=== PATIENT | female | born 1980 | race Caucasian/White ===

== ENCOUNTER 2016-07-27 03:29 | Emergency (ER) | payer BC ==
[~2016-07-27] VITALS: Ht 170.2 cm; Wt 77.1 kg
[2016-07-27 03:40] VITALS: BP 120/70
[2016-07-27] MEDS ORDERED: PROVENTIL HFA6.7 G1 IH (03:41)
--- NOTE | 2016-07-27 03:59 | Emergency Room Report ---
History of Present Illness General Chief Complaint: Wound Recheck/Suture Removal Source: Patient Present Illness HPI Patient presents with bleeding from a lesion on her thumb. She was diagnosed with a pyogenic granuloma there. She was doing something to help it and had some bleeding. 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 No bleeding problems prior. Tetanus is UTD. R handed. The patient is 32 weeks . The baby is moving. She denies any vaginal bleeding. Anxious. No fevers, URI, chest pain, dizziness. Allergies: Coded Allergies: No Known Allergies (Unverified , 07/27/16) Patient History Past Medical History: see triage record Social History Narrative fashion industry Last Menstrual Period: november 2015 Reviewed Nursing Documentation: PMH: Agreed, PSxH: Agreed Nursing Documentation-PMH Hx Asthma: Yes Review of Systems All Other Systems: negative except mentioned in HPI Physical Exam Vital Signs Date Time Temp Pulse Resp B/P Pulse Ox O2 Delivery O2 Flow Rate FiO2 07/27/16 03:30 97.9 91 16 95 Room Air Sp02 EP Interpretation: reviewed, normal, other - I doubt this result General Appearance: well appearing, no apparent distress, GCS 15 Head: normocephalic, atraumatic Eyes: bilateral eye PERRL, bilateral eye normal inspection ENT: hearing grossly normal, normal voice Neck: full range of motion, supple Respiratory: no respiratory distress, speaking full sentences Gastrointestinal: normal bowel sounds, non tender, soft, no guarding, other - gravid abd Musculoskeletal: digits/nails normal - except for lesion on thumb, gait/ station normal, normal range of motion Neurologic: alert, normal gait, grossly normal Psychiatric: anxious Skin: other - lesion R thumb, bleeding if not elevated and pressure applied Procedures Laceration/Wound Repair Progress betadiene then 1% lido. Cautery ineffective to stop bleeding completely. Suture 6-0 ethilon placed. Bleeding controlled. Dressed with antibiotic ointment. Medical Decision Making Diagnostic Impression: Primary Impression: Bleeding lesion R thumb Additional Impression: 32 weeks gestation of ER Course Patient with uncontrolled bleeding from thumb lesion and 32 weeks . As she is , need to exclude coagulopathy. Also lesion needs hemostasis. Bleeding controlled with cautery and suture. FHT 140 by auscultation. Labs unremarkable. Patient stable for outpatient observation and treatment. Message left regarding labs. Laboratory Tests Test 07/27/16 05:20 White Blood Count 12.5 K/UL (4.8-10.8) H Red Blood Count 3.94 M/UL (4.20-5.40) L Hemoglobin 11.0 G/DL (12.0-16.0) L Hematocrit 32.9 % (37.0-47.0) L Mean Corpuscular Volume 84 FL (80-99) Mean Corpuscular Hemoglobin 27.9 PG (27.0-31.0) Mean Corpuscular Hemoglobin Concent 33.4 G/DL (32.0-36.0) Red Cell Distribution Width 12.0 % (11.6-14.8) Platelet Count 255 K/UL (150-450) Mean Platelet Volume 6.4 FL (6.5-10.1) L Neutrophils (%) (Auto) 67.9 % (45.0-75.0) Lymphocytes (%) (Auto) 26.3 % (20.0-45.0) Monocytes (%) (Auto) 4.6 % (1.0-10.0) Eosinophils (%) (Auto) 0.7 % (0.0-3.0) Basophils (%) (Auto) 0.6 % (0.0-2.0) Prothrombin Time 9.4 SEC (9.30-11.50) Prothrombin Time INR 0.9 (0.9-1.1) Sodium Level 136 mEQ/L (135-145) Potassium Level 4.2 mEQ/L (3.4-4.9) Chloride Level 100 mEQ/L (98-107) Carbon Dioxide Level 20 mEQ/L (20-30) Anion Gap 16 (5-15) H Blood Urea Nitrogen 12 mg/dL (7-23) Creatinine 0.6 mg/dL (0.5-0.9) Estimate Glomerular Filtration Rate > 60 mL/min (>60) Glucose Level 91 mg/dL (74-106) Calcium Level 8.8 mg/dL (8.6-10.2) Total Bilirubin < 0.2 mg/dL (0.0-1.2) Aspartate Amino Transferase (AST) 18 U/L (5-40) Alanine Aminotransferase (ALT) 18 U/L (3-33) Alkaline Phosphatase 86 U/L (35-104) Total Protein 6.1 g/dL (6.6-8.7) L Albumin 3.3 g/dL (3.5-5.2) L Globulin 2.8 g/dL Albumin/Globulin Ratio 1.1 (1.0-2.7) Last Vital Signs Date Time Temp Pulse Resp B/P Pulse Ox O2 Delivery O2 Flow Rate FiO2 07/27/16 05:45 98.0 83 17 122/75 100 Room Air Status: improved Disposition: HOME, SELF-CARE Condition: Improved Scripts Bacitracin (Bacitracin) 28.4 Gm Oint...g. 1 APPLIC TOPIC BID, #10 GM Prov: Flip Aceves M.D. 07/27/16 Flip Aceves M.D. Jul 27, 2016 03:59
[2016-07-27] MEDS ORDERED: Lidocaine 1% Plain 30 ml INJ ONE (04:00)
[2016-07-27] MEDS ORDERED: Bacitracin Oint UD TOPIC ONE (04:00)
[2016-07-27] MEDS ORDERED: BACITRACIN15 GM TOPIC (05:21)
[2016-07-27 05:27] LABS: BASOPHILS % (AUTO) 0.6 % (0.0-2.0); EOSINOPHILS % (AUTO) 0.7 % (0.0-3.0); LYMPHOCYTES % (AUTO) 26.3 % (20.0-45.0); MEAN CORPUSCULAR HEMOGLOBIN 27.9 PG (27.0-31.0); MEAN CORPUSCULAR HGB CONC 33.4 G/DL (32.0-36.0); MEAN CORPUSCULAR VOLUME 84 FL (80-99); MEAN PLATELET VOLUME 6.4 FL (6.5-10.1); MONOCYTES % (AUTO) 4.6 % (1.0-10.0); NEUTROPHILS % (AUTO) 67.9 % (45.0-75.0); PLATELET COUNT 255 K/UL (150-450); RED BLOOD COUNT 3.94 M/UL (4.20-5.40); WHITE BLOOD COUNT 12.5 K/UL (4.8-10.8)
[2016-07-27 05:33] LABS: INR 0.9 (0.9-1.1); PROTHROMBIN TIME 9.4 SEC (9.30-11.50)
[2016-07-27 05:45] VITALS: BP 122/75
[2016-07-27 05:48] LABS: ALANINE AMINOTRANSFERASE 18 U/L (3-33); ALBUMIN/GLOBULIN RATIO 1.1 (1.0-2.7); ANION GAP 16 (5-15); ASPARTATE AMINO TRANSFERASE 18 U/L (5-40); CALCIUM 8.8 mg/dL (8.6-10.2); CARBON DIOXIDE 20 mEQ/L (20-30); CHLORIDE 100 mEQ/L (98-107); CREATININE 0.6 mg/dL (0.5-0.9); GLOMERULAR FILTRATION RATE > 60 mL/min (>60); HEMOLYSIS 0; POTASSIUM 4.2 mEQ/L (3.4-4.9); SODIUM 136 mEQ/L (135-145); TOTAL PROTEIN 6.1 g/dL (6.6-8.7)
== END 2016-07-27 05:45 | disposition home or self-care (01) ==
LOC: EMR 04:33
DX: O26.893 Other specified pregnancy related conditions, third trimester (principal); Z3A.32 32 weeks gestation of pregnancy; S61.011A Laceration without foreign body of right thumb without damage to nail, initial encounter; J45.909 Unspecified asthma, uncomplicated; X58.XXXA Exposure to other specified factors, initial encounter; Y92.9 Unspecified place or not applicable; Y99.8 Other external cause status
CPT/HCPCS: 12001; 36415; 80053; 85025; 85610; 99284; J2001